=== PATIENT | male | born 1960 | race Asian ===

== ENCOUNTER 2019-03-20 11:30 | Emergency (ER) | payer OTHER ==
[~2019-03-20] VITALS: Ht 177.8 cm; Wt 72.6 kg
[2019-03-20 11:59] LABS: PLATELET COUNT 275 K/uL (142-355)
[2019-03-20 12:07] LABS: POTASSIUM 4.3 mmol/L (3.6-5.2)
[2019-03-20 12:45] VITALS: BP 149/80; TEMP 97.6
[2019-03-20] MEDS ORDERED: DIVA125C PO (13:38)
[2019-03-20] MEDS ORDERED: CLONIDINE0.3 MG/21 TD (13:41)
[2019-03-20] MEDS ORDERED: AMLODIPINE BESYLATE PO (13:43)
[2019-03-20] MEDS ORDERED: PANTOPRAZOLE 40MG TA PO (13:44)
[2019-03-20] MEDS ORDERED: ALBUTEROL0.63 MG/3 INH (13:46)
[2019-03-20] MEDS ORDERED: DOCU100C10 PO (13:47)
[2019-03-20] MEDS ORDERED: HYDRALAZINE25 MG PO (13:48)
[2019-03-20] MEDS ORDERED: LACTSYP31 PO (13:49)
[2019-03-20] MEDS ORDERED: POLYETH GLYC3350 NF PO (13:50)
[2019-03-20] MEDS ORDERED: OXYC5TAB24 PO (13:51)
[2019-03-26] MEDS ORDERED: THIA100T8 PO (18:21)
[2019-03-26] MEDS ORDERED: MAGNSUS68 PO (18:21)
[2019-03-26] MEDS ORDERED: FOLI1TAB26 PO (18:21)
[2019-03-26] MEDS ORDERED: ESCI10TA PO (18:22)
[2019-03-26] MEDS ORDERED: DIVA250T PO (18:31)
== END 2019-03-20 12:45 | disposition other institution (70) ==
LOC: ED 11:45
PROVIDERS: Family Medicine
DX: R46.89 Other symptoms and signs involving appearance and behavior (principal); R45.1 Restlessness and agitation; Z04.6 Encounter for general psychiatric examination, requested by authority
CPT/HCPCS: 80053; 81000; 85027; 93005; 99283; 99285